=== PATIENT | female | born 1965 | race Caucasian/White ===

== ENCOUNTER → 2016-11-05 | Outpatient (CLI) | payer BC, OTHER ==
[~2016-11-05] MED LIST: IBUP-1482 PO
[2016-11-05 08:37] LABS: ALBUMIN 3.9 g/dL (3.4-5.0); BILIRUBIN,TOTAL 0.6 mg/dL (0.2-1.0); CREATININE 0.9 mg/dL (0.6-1.3); POTASSIUM 4.1 mmol/L (3.5-5.1); TOTAL PROTEIN, SERUM 8.3 g/dL (6.4-8.2)
[2016-11-05 08:46] LABS: BASOPHILS % (AUTO) 0.5 % (0.0-2.0); EOSINOPHILS # (AUTO) 0.2 K/uL (0.0-0.7); EOSINOPHILS % (AUTO) 2.1 % (0.0-7.0); HEMATOCRIT 41.4 % (37.0-47.0); HEMOGLOBIN 14.2 g/dL (12.0-16.0); LYMPHOCYTES # (AUTO) 2.1 K/uL (0.8-4.8); LYMPHOCYTES % (AUTO) 22.6 % (20.5-51.5); MEAN CORPUSCULAR HEMOGLOBIN 28.3 uug (27.0-31.0); MEAN CORPUSCULAR HGB CONC 34 g/dL (32.0-37.0); MEAN CORPUSCULAR VOLUME 82.7 fL (81.0-99.0); MONOCYTES # (AUTO) 0.7 K/uL (0.1-1.30); MONOCYTES % (AUTO) 7.1 % (0.0-11.0); NEUTROPHILS # (AUTO) 6.2 K/uL (1.8-8.9); NEUTROPHILS % (AUTO) 67.7 % (38.5-71.5); PLATELET COUNT (AUTO) 247 K/uL (150-450); RED CELL DISTRIBUTION WIDTH 13.4 % (11.5-14.5); WHITE BLOOD COUNT (AUTO) 9.2 K/uL (4.0-11.2)
[2016-11-05 08:56] LABS: THYROID STIMULATING HORMONE 3.216 mIU/mL (0.358-3.740)
== END | disposition home or self-care (01) ==
LOC: LAB 07:04
PROVIDERS: ATTEND Family Medicine
DX: M16.11 Unilateral primary osteoarthritis, right hip (principal); R73.9 Hyperglycemia, unspecified; M25.552 Pain in left hip
CPT/HCPCS: 36415; 73502; 84443; 85025

== ENCOUNTER 2017-07-06 10:32 | Outpatient (CLI) | payer BC, OTHER ==
[~2017-07-06 10:32] MED LIST changes: -IBUP-1482 PO; +IBUP-1957 PO
[2017-07-06 15:18] LABS: BASOPHILS % (AUTO) 0.6 % (0.0-2.0); EOSINOPHILS # (AUTO) 0.2 K/uL (0.0-0.7); EOSINOPHILS % (AUTO) 1.9 % (0.0-7.0); HEMATOCRIT 40.8 % (31.2-41.9); HEMOGLOBIN 13.6 g/dL (10.9-14.3); LYMPHOCYTES # (AUTO) 2.3 K/uL (20.0-40.0); LYMPHOCYTES % (AUTO) 28.9 % (20.5-51.5); MEAN CORPUSCULAR HEMOGLOBIN 27.9 uug (24.7-32.8); MEAN CORPUSCULAR HGB CONC 33 g/dL (32.3-35.6); MEAN CORPUSCULAR VOLUME 83.9 fL (75.5-95.3); MONOCYTES # (AUTO) 0.5 K/uL (2.0-10.0); NEUTROPHILS # (AUTO) 4.9 K/uL (1.8-8.9); NEUTROPHILS % (AUTO) 62.6 % (38.5-71.5); PLATELET COUNT (AUTO) 251 K/uL (179-408); RED BLOOD CELL COUNT(AUTO) 4.87 MIL/uL (3.63-4.92); WHITE BLOOD COUNT (AUTO) 7.9 K/uL (3.8-11.8)
[2017-07-06 15:34] LABS: BILIRUBIN,TOTAL 0.4 mg/dL (0.2-1.0); CREATININE 0.8 mg/dL (0.6-1.3); POTASSIUM 3.8 mmol/L (3.5-5.1); TOTAL PROTEIN, SERUM 8.1 g/dL (6.4-8.2)
[2017-07-06 15:46] LABS: *BILIRUBIN,URIN NEGATIVE (NEGATIVE); *BLOOD, URINE NEGATIVE (NEGATIVE); *CLARITY,URINE CLEAR (CLEAR); *COLOR,URINE YELLOW (YELLOW); *KETONES,URINE NEGATIVE (NEGATIVE); *PROTEIN,URINE NEGATIVE (NEGATIVE); *UROBILINOGEN,URINE 0.2 E.U./dl (NORMAL); LEUKOCYTE ESTERASE ,URINE NEGATIVE (NEGATIVE); NITRITE, URINE NEGATIVE (NEGATIVE); PH,URINE 5.5 (5.0-8.0); UGLUCOSE NEGATIVE (NEGATIVE)
[2017-07-06 16:10] LABS: THYROID STIMULATING HORMONE 3.643 mIU/mL (0.358-3.740)
[2017-07-06 16:23] LABS: BACTERIA,URINE FEW /HPF (NONE SEEN); SQUAMOUS EPITHELIAL CELL,UR MODERATE /HPF (NONE SEEN); WBC,URINE 0-3 /HPF (0-3)
== END 2017-07-06 23:59 | disposition home or self-care (01) ==
LOC: US 10:32
PROVIDERS: ATTEND Family Medicine
DX: R74.8 Abnormal levels of other serum enzymes (principal); R10.9 Unspecified abdominal pain; E11.9 Type 2 diabetes mellitus without complications; E55.9 Vitamin D deficiency, unspecified
CPT/HCPCS: 36415; 76700; 82306; 84443; 85025

== ENCOUNTER 2017-12-13 07:50 | Outpatient (CLI) | payer BC, OTHER ==
[2017-12-13 11:16] LABS: *BILIRUBIN,URIN NEGATIVE (NEGATIVE); *BLOOD, URINE Trace-intact (NEGATIVE); *CLARITY,URINE CLEAR (CLEAR); *COLOR,URINE YELLOW (YELLOW); *KETONES,URINE NEGATIVE (NEGATIVE); *PROTEIN,URINE NEGATIVE (NEGATIVE); *UROBILINOGEN,URINE 0.2 E.U./dl (NORMAL); LEUKOCYTE ESTERASE ,URINE NEGATIVE (NEGATIVE); NITRITE, URINE NEGATIVE (NEGATIVE); UGLUCOSE NEGATIVE (NEGATIVE)
[2017-12-13 11:20] LABS: BASOPHILS % (AUTO) 0.5 % (0.0-2.0); EOSINOPHILS # (AUTO) 0.2 K/uL (0.0-0.7); HEMATOCRIT 39.6 % (31.2-41.9); HEMOGLOBIN 13.4 g/dL (10.9-14.3); LYMPHOCYTES # (AUTO) 2.2 K/uL (20.0-40.0); LYMPHOCYTES % (AUTO) 27.2 % (20.5-51.5); MEAN CORPUSCULAR HEMOGLOBIN 27.9 uug (24.7-32.8); MEAN CORPUSCULAR HGB CONC 34 g/dL (32.3-35.6); MEAN CORPUSCULAR VOLUME 82.5 fL (75.5-95.3); MONOCYTES # (AUTO) 0.5 K/uL (2.0-10.0); NEUTROPHILS # (AUTO) 5.1 K/uL (1.8-8.9); NEUTROPHILS % (AUTO) 63.3 % (38.5-71.5); PLATELET COUNT (AUTO) 246 K/uL (179-408); WHITE BLOOD COUNT (AUTO) 8.1 K/uL (3.8-11.8)
[2017-12-13 11:24] LABS: BACTERIA,URINE FEW /HPF (NONE SEEN); SQUAMOUS EPITHELIAL CELL,UR FEW /HPF (NONE SEEN); WBC,URINE 0-3 /HPF (0-3)
[2017-12-13 11:33] LABS: BILIRUBIN,TOTAL 0.3 mg/dL (0.2-1.0); CREATININE 0.9 mg/dL (0.6-1.3); POTASSIUM 4.2 mmol/L (3.5-5.1)
[2017-12-13 11:41] LABS: THYROID STIMULATING HORMONE 7.326 mIU/mL (0.358-3.740)
[2017-12-13 11:46] LABS: *RHEUMATOID FACTOR SCREEN NEGATIVE (NEGATIVE)
== END 2017-12-13 23:59 | disposition home or self-care (01) ==
LOC: LAB 07:50
PROVIDERS: ATTEND Family Medicine
DX: E11.65 Type 2 diabetes mellitus with hyperglycemia (principal); M25.50 Pain in unspecified joint
CPT/HCPCS: 36415; 82043; 82570; 84443; 85025; 86038; 86430

== ENCOUNTER 2019-06-05 08:12 | Outpatient (CLI) | payer BC, OTHER ==
[2019-06-05 09:39] LABS: BILIRUBIN,TOTAL 0.3 mg/dL (0.2-1.0); CREATININE 0.8 mg/dL (0.6-1.3); POTASSIUM 4.6 mmol/L (3.5-5.1); TOTAL PROTEIN, SERUM 8.1 g/dL (6.4-8.2)
[2019-06-05 09:43] LABS: THYROID STIMULATING HORMONE 3.129 mIU/mL (0.358-3.740)
== END 2019-06-05 23:59 | disposition home or self-care (01) ==
LOC: LAB 08:12
PROVIDERS: ATTEND Internal Medicine Gastroenterology
DX: R19.7 Diarrhea, unspecified (principal)
CPT/HCPCS: 83690; 84443; 85651

== ENCOUNTER 2019-07-31 10:09 | Day surgery (SDC) | payer BC, OTHER ==
[2019-07-31 10:46] LABS: BASOPHILS # (AUTO) 0.1 K/uL (0.0-8.0); EOSINOPHILS # (AUTO) 0.1 K/uL (0.0-0.7); EOSINOPHILS % (AUTO) 1.1 % (0.0-7.0); HEMATOCRIT 43.7 % (31.2-41.9); HEMOGLOBIN 14.4 g/dL (10.9-14.3); LYMPHOCYTES # (AUTO) 1.8 K/uL (20.0-40.0); LYMPHOCYTES % (AUTO) 24.1 % (20.5-51.5); MEAN CORPUSCULAR HEMOGLOBIN 27.8 uug (24.7-32.8); MEAN CORPUSCULAR HGB CONC 33 g/dL (32.3-35.6); MEAN CORPUSCULAR VOLUME 84.4 fL (75.5-95.3); MONOCYTES # (AUTO) 0.4 K/uL (2.0-10.0); MONOCYTES % (AUTO) 5.8 % (0.0-11.0); NEUTROPHILS # (AUTO) 5.2 K/uL (1.8-8.9); PLATELET COUNT (AUTO) 284 K/uL (179-408); RED BLOOD CELL COUNT(AUTO) 5.18 MIL/uL (3.63-4.92); WHITE BLOOD COUNT (AUTO) 7.6 K/uL (3.8-11.8)
[2019-07-31 10:50] LABS: CREATININE 0.9 mg/dL (0.6-1.3); POTASSIUM 3.9 mmol/L (3.5-5.1)
[2019-07-31 10:56] LABS: BILIRUBIN,TOTAL 0.5 mg/dL (0.2-1.0); TOTAL PROTEIN, SERUM 8.7 g/dL (6.4-8.2)
[2019-07-31 11:18] LABS: *BILIRUBIN,URIN NEGATIVE (NEGATIVE); *CLARITY,URINE SLIGHTLY CLOUDY (CLEAR); *COLOR,URINE YELLOW (YELLOW); *KETONES,URINE NEGATIVE (NEGATIVE); *UROBILINOGEN,URINE 0.2 E.U./dl (NORMAL); LEUKOCYTE ESTERASE ,URINE NEGATIVE (NEGATIVE); NITRITE, URINE NEGATIVE (NEGATIVE); PH,URINE 5.5 (5.0-8.0); UGLUCOSE NEGATIVE (NEGATIVE)
[2019-07-31 11:19] LABS: *BLOOD, URINE TRACE INTACT (NEGATIVE)
[2019-07-31 11:24] LABS: SQUAMOUS EPITHELIAL CELL,UR FEW /HPF (NONE SEEN)
[2019-07-31 11:25] LABS: BACTERIA,URINE FEW /HPF (NONE SEEN); RBC,URINE 0-3 /HPF (0-3); WBC,URINE 0-3 /HPF (0-3)
[2019-07-31] MEDS ORDERED: SIMETHICONE 40 MG/0.6 ML, 30ML BOTTLE ONE (12:46)
[2019-08-01 07:07] LABS: *CELIAC IMMUNOGLOBULIN A 347 mg/dL (87-352)
[2019-08-02 12:14] LABS: *CELIAC DEAMIDATED GLIADIN IGA 7 units (0-19); *CELIAC DEAMIDATED GLIADIN IGG 3 units (0-19)
[2019-08-02 13:15] LABS: *CELIAC T-TRANSGLUTAMINASE IGA <2 U/mL (0-3); *CELIAC T-TRANSGLUTAMINASE IGG <2 U/mL (0-5)
== END 2019-07-31 15:35 | disposition home or self-care (01) ==
LOC: DS 10:09
PROVIDERS: ATTEND Internal Medicine Gastroenterology
DX: K52.9 Noninfective gastroenteritis and colitis, unspecified (principal); K63.89 Other specified diseases of intestine; K64.8 Other hemorrhoids; E11.9 Type 2 diabetes mellitus without complications; M19.90 Unspecified osteoarthritis, unspecified site; F32.9 Major depressive disorder, single episode, unspecified; Z79.899 Other long term (current) drug therapy; Z79.84 Long term (current) use of oral hypoglycemic drugs; Z90.49 Acquired absence of other specified parts of digestive tract; Z90.710 Acquired absence of both cervix and uterus; Z98.890 Other specified postprocedural states; Z83.3 Family history of diabetes mellitus; Z82.49 Family history of ischemic heart disease and other diseases of the circulatory system
CPT/HCPCS: 71045; 85025; 85730; 93005; A4217; A4663; J7030

== ENCOUNTER 2019-08-28 18:19 | Emergency (ER) | payer BC, OTHER ==
[~2019-08-28] VITALS: Ht 165.1 cm; Wt 78.0 kg
--- NOTE | 2019-08-28 18:42 | NUR ---
Pt ambulated to ER with steady gait from work at [facility] [place]. Pt c/o mild chest pressure and pain accompanied with minor headache. Pt was told by her Primary physicial that potassium levels were elevated and she needs to be admitted to ER for further eval. Pt is A/Ox3, with minor headache, no other neuro symptoms noted. Reports minor chest pain started today. Speaks in complete sentences, speach is clear. Lung sounds are clear bilaterally, no SOB noted. No abdominal pain,no n/v, active bowel sounds X4 quadrants.No pain with urination. Skin is pink and dry. Bed at lowest level , side rails upx2, call light within pt reach. Fall precautions implemented per hospital protocal.
[2019-08-28 18:59] LABS: BASOPHILS # (AUTO) 0.1 K/uL (0.0-8.0); BASOPHILS % (AUTO) 0.8 % (0.0-2.0); EOSINOPHILS # (AUTO) 0.1 K/uL (0.0-0.7); EOSINOPHILS % (AUTO) 1.8 % (0.0-7.0); HEMATOCRIT 40.1 % (31.2-41.9); HEMOGLOBIN 13.4 g/dL (10.9-14.3); LYMPHOCYTES # (AUTO) 2.4 K/uL (20.0-40.0); LYMPHOCYTES % (AUTO) 28.5 % (20.5-51.5); MEAN CORPUSCULAR HEMOGLOBIN 27.9 uug (24.7-32.8); MEAN CORPUSCULAR HGB CONC 33 g/dL (32.3-35.6); MEAN CORPUSCULAR VOLUME 83.8 fL (75.5-95.3); MONOCYTES # (AUTO) 0.6 K/uL (2.0-10.0); MONOCYTES % (AUTO) 6.7 % (0.0-11.0); NEUTROPHILS # (AUTO) 5.2 K/uL (1.8-8.9); NEUTROPHILS % (AUTO) 62.2 % (38.5-71.5); PLATELET COUNT (AUTO) 261 K/uL (179-408); RED BLOOD CELL COUNT(AUTO) 4.78 MIL/uL (3.63-4.92); WHITE BLOOD COUNT (AUTO) 8.4 K/uL (3.8-11.8)
[2019-08-28 19:06] LABS: CREATININE 0.8 mg/dL (0.6-1.3)
--- NOTE | 2019-08-28 19:13 | NUR ---
Report given to MAYNOR Green.
[2019-08-28 19:19] LABS: BILIRUBIN,DIRECT 0.1 mg/dL (0.0-0.2); BILIRUBIN,TOTAL 0.5 mg/dL (0.2-1.0); TOTAL PROTEIN, SERUM 8.1 g/dL (6.4-8.2)
[2019-08-28 19:42] VITALS: BP 140/79
--- NOTE | 2019-08-28 19:42 | NUR ---
Patient discharged to home in stable conditon. Written and verbal after care instructions given. Patient verbalizes understanding of instructions. Pt walked out of ER in stable condition. No acute distress noted. Vital signs stable. Respirations even +unlabored. Pt denies any pain or discomfort at this time.
== END 2019-08-28 19:43 | disposition home or self-care (01) ==
LOC: ER 18:22
DX: R07.89 Other chest pain (principal); Z79.899 Other long term (current) drug therapy; Z90.49 Acquired absence of other specified parts of digestive tract
CPT/HCPCS: 36415; 70030-TC; 71045; 85025; 85730; 93005; A4663

== ENCOUNTER 2019-11-12 09:25 | Outpatient (CLI) | payer BC, OTHER ==
[2019-11-12 10:19] LABS: BILIRUBIN,TOTAL 0.2 mg/dL (0.2-1.0); CREATININE 0.8 mg/dL (0.6-1.3); POTASSIUM 3.9 mmol/L (3.5-5.1); TOTAL PROTEIN, SERUM 8.1 g/dL (6.4-8.2)
[2019-11-12 10:40] LABS: THYROID STIMULATING HORMONE 3.869 mIU/mL (0.358-3.740)
== END 2019-11-12 23:59 | disposition home or self-care (01) ==
LOC: LAB 09:25
PROVIDERS: ATTEND Family Medicine
DX: E11.9 Type 2 diabetes mellitus without complications (principal); E03.9 Hypothyroidism, unspecified
CPT/HCPCS: 36415; 84443

== ENCOUNTER 2019-12-22 13:30 | Emergency (ER) | payer BC, OTHER ==
[~2019-12-22] VITALS: Ht 165.1 cm; Wt 77.1 kg
--- NOTE | 2019-12-22 14:04 | NUR ---
Patient discharged to home in stable condition. Written and verbal after care instructions given. Patient verbalizes understanding of instructions. Stressed follow up or return to ER for worsening s/s.
== END 2019-12-22 14:04 | disposition home or self-care (01) ==
LOC: ER 13:36
DX: J02.9 Acute pharyngitis, unspecified (principal); Z20.828 Contact with and (suspected) exposure to other viral communicable diseases; Z85.3 Personal history of malignant neoplasm of breast; Z86.11 Personal history of tuberculosis
CPT/HCPCS: 99283; U0003; A4663

== ENCOUNTER 2020-07-22 06:59 | Outpatient (CLI) | payer BC, OTHER ==
[2020-07-22 08:13] LABS: BILIRUBIN,DIRECT 0.1 mg/dL (0.0-0.2); BILIRUBIN,TOTAL 0.3 mg/dL (0.2-1.0); TOTAL PROTEIN, SERUM 8.3 g/dL (6.4-8.2)
[2020-07-23 08:06] LABS: HEPATITIS A AB, TOTAL Positive (Negative); HEPATITIS B SURFACE AB Reactive (.)
== END 2020-07-22 23:59 | disposition home or self-care (01) ==
LOC: LAB 06:59
PROVIDERS: ATTEND Family Medicine
DX: E11.9 Type 2 diabetes mellitus without complications (principal); E03.9 Hypothyroidism, unspecified; R94.5 Abnormal results of liver function studies; K76.0 Fatty (change of) liver, not elsewhere classified; Z79.899 Other long term (current) drug therapy; Z90.49 Acquired absence of other specified parts of digestive tract
CPT/HCPCS: 36415; 76705; 86706; 86708; 86803

== ENCOUNTER 2021-03-16 08:04 | Outpatient (CLI) | payer BC, OTHER ==
[2021-03-16 08:18] LABS: HEMATOCRIT 40.5 % (31.2-41.9); MEAN CORPUSCULAR HEMOGLOBIN 28.9 uug (24.7-32.8); MEAN CORPUSCULAR VOLUME 84.6 fL (75.5-95.3); PLATELET COUNT (AUTO) 260 K/uL (179-408)
[2021-03-16 08:39] LABS: THYROID STIMULATING HORMONE 4.951 mIU/mL (0.358-3.740)
[2021-03-16 08:46] LABS: BILIRUBIN,TOTAL 0.4 mg/dL (0.2-1.0); POTASSIUM 4.3 mmol/L (3.5-5.1); TOTAL PROTEIN, SERUM 8.3 g/dL (6.4-8.2)
== END 2021-03-16 23:59 | disposition home or self-care (01) ==
LOC: LAB 08:04
PROVIDERS: ATTEND Family Medicine
DX: E11.9 Type 2 diabetes mellitus without complications (principal); E03.9 Hypothyroidism, unspecified; M19.011 Primary osteoarthritis, right shoulder; M19.012 Primary osteoarthritis, left shoulder
CPT/HCPCS: 36415; 73030; 84443; 85025

== ENCOUNTER 2021-04-21 12:20 | Outpatient (CLI) | payer BC, OTHER | END 2021-04-21 23:59 | disposition home or self-care (01) | LOC: LAB 12:20 → US 23:59 | PROVIDERS: ATTEND Family Medicine | DX: I10 Essential (primary) hypertension (principal) | CPT/HCPCS: 93307 ==

== ENCOUNTER 2021-05-05 07:28 | Outpatient (CLI) | payer BC, OTHER ==
[2021-05-05 08:20] LABS: PLATELET COUNT (AUTO) 247 K/uL (179-408)
[2021-05-05 08:28] LABS: BILIRUBIN,TOTAL 0.2 mg/dL (0.2-1.0); CREATININE 0.8 mg/dL (0.6-1.3); POTASSIUM 4.5 mmol/L (3.5-5.1)
[2021-05-05 08:36] LABS: THYROID STIMULATING HORMONE 5.38 mIU/mL (0.358-3.740)
== END 2021-05-05 23:29 | disposition home or self-care (01) ==
LOC: LAB 07:28
PROVIDERS: ATTEND Family Medicine
DX: I10 Essential (primary) hypertension (principal); E11.9 Type 2 diabetes mellitus without complications; E03.9 Hypothyroidism, unspecified; R94.5 Abnormal results of liver function studies
CPT/HCPCS: 36415; 84443; 85025

== ENCOUNTER 2021-07-14 19:06 | Emergency (ER) | payer BC, OTHER ==
[~2021-07-14] VITALS: Ht 165.1 cm; Wt 77.1 kg
--- NOTE | 2021-07-14 20:00 | NUR ---
DR. HEWITT AT BEDSIDE, MSE IN PROGRESS.
[2021-07-14] MEDS ORDERED: IBUPROFEN 800 MG TABLET PO ONE (20:30)
[2021-07-14] MEDS ORDERED: IBUPROFEN 800 MG TABLET ONE (20:35)
--- NOTE | 2021-07-14 21:22 | NUR ---
XRAY AT BEDSIDE.
--- NOTE | 2021-07-14 21:32 | NUR ---
PT TAKEN TO CT.
--- NOTE | 2021-07-14 21:45 | NUR ---
PT RETURNED FROM CT.
[2021-07-14] MEDS ORDERED: NAPR-1164 PO (22:34)
[2021-07-14] MEDS ORDERED: OXYC-128 PO (22:34)
--- NOTE | 2021-07-14 22:42 | NUR ---
Patient discharged to home in stable condition. Written and verbal after care instructions given. Patient verbalizes understanding of instructions. Stressed follow up or return to ER for worsening s/s. Denies any pain/discomfort upon discharge. No changes in LOC. Steady gait. Accompanied by .
[2021-07-14 22:44] VITALS: BP 112/61
== END 2021-07-14 22:44 | disposition home or self-care (01) ==
LOC: ER 19:08
DX: M75.31 Calcific tendinitis of right shoulder (principal); S16.1XXA Strain of muscle, fascia and tendon at neck level, initial encounter; V43.52XA Car driver injured in collision with other type car in traffic accident, initial encounter; Y92.410 Unspecified street and highway as the place of occurrence of the external cause; Z86.11 Personal history of tuberculosis
CPT/HCPCS: 72125; 73030; A4663

== ENCOUNTER 2021-11-10 07:21 | Outpatient (CLI) | payer BC, OTHER ==
[~2021-11-10 07:21] MED LIST changes: +NAPR-1164 PO; +OXYC-128 PO
[2021-11-10 10:26] LABS: HEMATOCRIT 38.7 % (31.2-41.9); MEAN CORPUSCULAR HEMOGLOBIN 28.4 uug (24.7-32.8); MEAN CORPUSCULAR VOLUME 83.2 fL (75.5-95.3); PLATELET COUNT (AUTO) 238 K/uL (179-408)
[2021-11-10 10:40] LABS: *BILIRUBIN,URIN NEGATIVE (NEGATIVE); *BLOOD, URINE NEGATIVE (NEGATIVE); *CLARITY,URINE CLEAR (CLEAR); *COLOR,URINE YELLOW (YELLOW); *KETONES,URINE NEGATIVE (NEGATIVE); *UROBILINOGEN,URINE 0.2 E.U./dl (NORMAL); LEUKOCYTE ESTERASE ,URINE NEGATIVE (NEGATIVE); NITRITE, URINE NEGATIVE (NEGATIVE); PH,URINE 5.5 (5.0-8.0); UGLUCOSE TRACE (NEGATIVE)
[2021-11-10 10:47] LABS: THYROID STIMULATING HORMONE 6.244 mIU/mL (0.358-3.740)
[2021-11-10 11:21] LABS: BILIRUBIN,TOTAL 0.3 mg/dL (0.2-1.0); POTASSIUM 4.5 mmol/L (3.5-5.1)
[2021-11-14 11:16] LABS: *MICROALBUMIN, UR 32.4; CREATININE, URINE 86.5
== END 2021-11-10 23:59 | disposition home or self-care (01) ==
LOC: LAB 07:21
PROVIDERS: ATTEND Family Medicine
DX: E11.9 Type 2 diabetes mellitus without complications (principal); E55.9 Vitamin D deficiency, unspecified; Z79.899 Other long term (current) drug therapy
CPT/HCPCS: 36415; 82043; 82306; 82570; 82746; 84443; 85025

== ENCOUNTER 2021-12-31 07:08 | Outpatient (CLI) | payer BC, OTHER ==
[2021-12-31 12:07] LABS: HEMATOCRIT 40.3 % (31.2-41.9); MEAN CORPUSCULAR HEMOGLOBIN 28.1 uug (24.7-32.8); MEAN CORPUSCULAR VOLUME 83.7 fL (75.5-95.3); PLATELET COUNT (AUTO) 266 K/uL (179-408)
[2021-12-31 12:32] LABS: BILIRUBIN,TOTAL 0.3 mg/dL (0.2-1.0); CREATININE 0.7 mg/dL (0.6-1.3); POTASSIUM 4.3 mmol/L (3.5-5.1); TOTAL PROTEIN, SERUM 8.1 g/dL (6.4-8.2)
[2021-12-31 13:05] LABS: THYROID STIMULATING HORMONE 3.893 mIU/mL (0.358-3.740)
[2021-12-31 13:42] LABS: URIC ACID 3.9 mg/dL (2.6-6.0)
== END 2021-12-31 23:59 | disposition home or self-care (01) ==
LOC: LAB 07:08
PROVIDERS: ATTEND Family Medicine
DX: E78.5 Hyperlipidemia, unspecified (principal); E55.9 Vitamin D deficiency, unspecified
CPT/HCPCS: 36415; 82306; 82746; 83550; 84443; 84481; 84550; 85025

== ENCOUNTER 2022-08-19 18:38 | Outpatient (CLI) | payer BC, OTHER | END 2022-08-19 23:59 | disposition home or self-care (01) | LOC: US 18:38 | PROVIDERS: ATTEND Family Medicine | DX: I65.23 Occlusion and stenosis of bilateral carotid arteries (principal); E11.51 Type 2 diabetes mellitus with diabetic peripheral angiopathy without gangrene ==

== ENCOUNTER 2023-03-30 09:32 | Emergency (ER) | payer OTHER ==
[~2023-03-30] VITALS: Ht 165.1 cm; Wt 77.1 kg
[2023-03-30 09:38] VITALS: O2SAT 97
[2023-03-30] MEDS ORDERED: KETOROLAC TROMETHAMINE 15 MG INJ ONE (09:56)
[2023-03-30] MEDS ORDERED: CYCLOBENZAPRINE HCL 10 MG TABLET ONE (09:56)
[2023-03-30] MEDS ORDERED: CYCLOBENZAPRINE HCL 10 MG TABLET PO ONE (10:00)
[2023-03-30] MEDS ORDERED: KETOROLAC TROMETHAMINE 15 MG INJ IM ONE (10:00)
[2023-03-30] MEDS ORDERED: CYCL5TAB PO (10:44)
[2023-03-30] MEDS ORDERED: IBUP-1957 PO (11:00)
== END 2023-03-30 10:58 | disposition home or self-care (01) ==
LOC: ER 09:32
DX: S39.012A Strain of muscle, fascia and tendon of lower back, initial encounter (principal); Z90.710 Acquired absence of both cervix and uterus; Z79.1 Long term (current) use of non-steroidal anti-inflammatories (NSAID); Z79.899 Other long term (current) drug therapy; W51.XXXA Accidental striking against or bumped into by another person, initial encounter; Y93.89 Activity, other specified; Y92.89 Other specified places as the place of occurrence of the external cause; Y99.8 Other external cause status
CPT/HCPCS: 99283; 72110; 96372; J1885; A4663

== ENCOUNTER 2023-09-29 06:41 | Outpatient (CLI) | payer BC ==
[~2023-09-29 06:41] MED LIST changes: +CYCL5TAB PO
[2023-09-29 08:42] LABS: BILIRUBIN,DIRECT 0.1 mg/dL (0.0-0.2); BILIRUBIN,TOTAL 0.3 mg/dL (0.2-1.0); TOTAL PROTEIN, SERUM 8.4 g/dL (6.4-8.2)
[2023-09-30 12:06] LABS: HEPATITIS A AB, IgM Negative (Negative); HEPATITIS B SURFACE AB QUANT >1000.0 mIU/mL (Immunity>9.9); HEPATITIS B SURFACE AG Negative (Negative); HEPATITIS C VIRUS ANTIBODY Non Reactive (Non Reactive)
== END 2023-09-29 23:59 | disposition home or self-care (01) ==
LOC: LAB 06:41
PROVIDERS: ATTEND Family Medicine
DX: K76.0 Fatty (change of) liver, not elsewhere classified (principal); R14.0 Abdominal distension (gaseous); R94.5 Abnormal results of liver function studies; Z90.49 Acquired absence of other specified parts of digestive tract
CPT/HCPCS: 36415; 76700; 83690; 86709; 86803; 87340

== ENCOUNTER 2024-08-01 15:33 | Emergency (ER) | payer BC ==
[~2024-08-01] VITALS: Ht 165.1 cm; Wt 81.6 kg
[2024-08-01 17:16] VITALS: BP 131/77; O2SAT 99
== END 2024-08-01 17:18 | disposition home or self-care (01) ==
LOC: ER 15:33
DX: M62.89 Other specified disorders of muscle (principal); M79.604 Pain in right leg; Z88.7 Allergy status to serum and vaccine; Z90.710 Acquired absence of both cervix and uterus; Z87.09 Personal history of other diseases of the respiratory system; Z87.39 Personal history of other diseases of the musculoskeletal system and connective tissue
CPT/HCPCS: A4606; A4663

== ENCOUNTER 2024-12-05 09:31 | Outpatient (CLI) | payer BC, OTHER | END 2024-12-05 23:59 | disposition home or self-care (01) | LOC: US 09:31 | PROVIDERS: ATTEND Family Medicine | DX: M79.605 Pain in left leg (principal); M79.604 Pain in right leg ==

== ENCOUNTER 2025-06-28 11:34 | Outpatient (CLI) | payer BC, OTHER ==
[~2025-06-28 11:34] MED LIST changes: -CYCL5TAB PO; +CYCL5TAB4 PO
== END 2025-06-28 23:59 | disposition home or self-care (01) ==
LOC: RAD 11:34
PROVIDERS: ATTEND Family Medicine
DX: Z53.21 Procedure and treatment not carried out due to patient leaving prior to being seen by health care provider (principal)